=== PATIENT | male | born 1990 | race Caucasian/White ===

== ENCOUNTER 2024-03-06 20:09 | Emergency (ER) | payer OTHER, BC ==
[~2024-03-06] VITALS: Ht 175.3 cm; Wt 99.4 kg
[2024-03-06] MEDS ORDERED: ACETAMINOPHEN 500 MG TAB PO ONE ×2 (21:30→22:45)
[2024-03-06] MEDS ORDERED: HYDROCODONE BIT/ACETAMINOPHEN 5/325 MG 1 TAB HOME.PACK PO ONE ×2 (22:38→22:45)
[2024-03-06] MEDS ORDERED: AMOXICILLIN 500 MG HOME.PACK PO ONE (22:45)
[2024-03-06] MEDS ORDERED: AMOX TR-K CLV1 EAC1 PO (22:59)
[2024-03-06] MEDS ORDERED: AMOXICILLIN/CLAVULANATE K 875 MG HOME.PACK PO ONE (23:00)
[2024-03-06 23:14] VITALS: BP 128/78
== END 2024-03-06 23:18 | disposition home or self-care (01) ==
LOC: ED 20:09
DX: S91.311A Laceration without foreign body, right foot, initial encounter (principal); X50.9XXA Other and unspecified overexertion or strenuous movements or postures, initial encounter
CPT/HCPCS: 73610; A9270

== ENCOUNTER 2024-03-16 10:42 | Emergency (ER) | payer OTHER, BC ==
[~2024-03-16] VITALS: Ht 175.3 cm; Wt 100.1 kg
[~2024-03-16 10:42] MED LIST: AMOX TR-K CLV1 EAC1 PO
--- OUTSIDE RECORDS SUMMARY | 2024-03-16 10:48 | XMS ---
PreManage Notification: ROGER BENTLEY Security [place] Events No recent Security Events currently on file CRITERIA MET - [facility] - 2 Visits in 30 Days CARE PROVIDERS There are no care providers on record at this time. [place] has no Care Guidelines for this patient. [place] [facility]12 MO.) [facility] NOTE: Visits indicate total known visits. ED/C VISIT TRACKING (12 MO.) 03/16/2024 10:42 [facility] TYPE: Emergency COMPLAINT: - STAPLE REMOVE 03/06/2024 20:[address] [facility] TYPE: Emergency COMPLAINT: - ANKLE LACERATION DIAGNOSES: - Laceration without foreign body, right foot, initial encounter - Other and unspecified overexertion or strenuous movements or postures, initial encounter INPATIENT VISIT TRACKING (12 MO.) No inpatient visits to display in this time frame [email or web address]
[2024-03-16] MEDS ORDERED: CLEOCIN HCL300 MG PO (11:11)
[2024-03-16 11:15] VITALS: BP 140/86
== END 2024-03-16 11:15 | disposition home or self-care (01) ==
LOC: ED 10:42
DX: S91.311D Laceration without foreign body, right foot, subsequent encounter (principal); V89.2XXD Person injured in unspecified motor-vehicle accident, traffic, subsequent encounter; L03.115 Cellulitis of right lower limb; Z79.899 Other long term (current) drug therapy
CPT/HCPCS: 99281